=== PATIENT | female | born 1955 | race Caucasian/White ===

== ENCOUNTER → 2017-01-07 | Outpatient (CLI) | payer MEDICARE ==
--- NOTE | 2017-01-07 16:54 | XCELERA REPORT ---
[address] [address] Lower Extremity Arterial Evaluation Name: JACOB VILLEGAS Age: 61 yrs Gender: Female : 1955 Patient Status: Outpatient Patient Location: Study Date: 01/07/2017 12:55 PM Procedure: A color flow and duplex scan of the lower extremity arteries was performed bilaterally with velocity and waveform anaylsis. Reason For Study: L97.513 Ordering Physician: BIANKA CANTRELL Performed By: Alondra Guillen Measurements and Calculations Right Left WET WASHER MACHINE PSV 183.0 122.9 cm/sec Prox PFA PSV 122.2 -79.5 cm/sec Prox SFA PSV 159.2 117.5 cm/sec Mid SFA PSV -120.8 -115.2 cm/sec Dist SFA PSV -74.3 -63.9 cm/sec Prox Pop A PSV 111.0 99.2 cm/sec Dist ALEXIA PSV 116.3 120.8 cm/sec Dist SCIENCE INSTRUCTOR PSV 147.7 -98.7 cm/sec Juma Pedis PSV -51.9 110.8 cm/sec Right Side Arterial Evaluation Normal velocity and triphasic waveforms noted from the Common Femoral artery to the Popliteal artery. Biphasic in the infrageniculate vessels . 0-19% stenosis at the infrageniculate vessels. Ankle Brachial index is 1.22. Left Side Arterial Evaluation Normal velocity and triphasic waveforms noted from the Common Femoral artery to the infrageniculate vessels. 0 % stenosis at the Femoral artery. Ankle Brachial index is 1.33. Interpretation Summary Mild hemodynamically significant lesions in the right lower extremity only, on duplex imaging, at rest. No hemodynamically significant lesions in the left lower extremity only, on duplex imaging, at rest. : BIANKA CANTRELL > Low Herrera
== END ==
LOC: SP 12:54
PROVIDERS: ATTEND Preventive Medicine Undersea and Hyperbaric Medicine
DX: L97.513 Non-pressure chronic ulcer of other part of right foot with necrosis of muscle (principal)
CPT/HCPCS: 93925

== ENCOUNTER 2017-04-14 06:38 | Day surgery (SDC) | payer MEDICARE ==
[~2017-04-14 06:38] MED LIST: KETOROLAC TROMETHAMINE 0.45% 4 DROP/0.4 ML DROPERETTE OD PRN
[2017-04-14] MEDS: CYCLOPENTOLATE 0.2%/PHENYLEPHRINE 1% OPH SOLN 2 ML OD PRN ×3 (07:01→07:22)
[2017-04-14] MEDS: TETRACAINE HCL 0.5% OPH SOLN 0.6 ML DROPERETTE OD PRN ×3 (07:01→07:32)
[2017-04-14] MEDS: TROPICAMIDE 1% OPH SOLN 3 ML OD PRN ×3 (07:02→07:22)
[2017-04-14] MEDS ORDERED: MIDAZOLAM 2 MG/2 ML INJ ONE (07:02)
[2017-04-14] MEDS ORDERED: FENTANYL CITRATE INJ/PF 100 MCG/2 ML AMPUL ONE (07:03)
[2017-04-14] MEDS ORDERED: ONDANSETRON HCL INJ/PF 4 MG/2 ML SDV ONE (07:03)
[2017-04-14] MEDS: BESIFLOXACIN HCL 0.6% OPH SUSP 5 ML BOTTLE OD PRN ×3 (07:04→07:51)
[2017-04-14] MEDS ORDERED: EPINEPHRINE INJ/PF 1 MG/1 ML AMPULE ONE (07:10)
[2017-04-14] MEDS ORDERED: CHONDR SU A NA/HYALUR INTRAOC KIT (SURGICARE) ONE (07:10)
[2017-04-14] MEDS ORDERED: TOBRAMYCIN SULFATE/DEXAMETH OPH OINTMENT 3.5 GM ONE (07:10)
[2017-04-14] MEDS ORDERED: LIDOCAINE 1% INJ-PF (10 MG/ML) 30 ML SDV ONE (07:10)
== END 2017-04-14 08:32 | disposition home or self-care (01) ==
LOC: SC 06:38
PROVIDERS: ATTEND Ophthalmology
PROC: 08RJ3JZ Replacement of Right Lens with Synthetic Substitute, Percutaneous Approach (ICD-10-PCS; principal; 2017-04-14 07:30)
DX: H25.11 Age-related nuclear cataract, right eye (principal); I10 Essential (primary) hypertension; E11.9 Type 2 diabetes mellitus without complications; E03.9 Hypothyroidism, unspecified; E78.00 Pure hypercholesterolemia, unspecified; R01.1 Cardiac murmur, unspecified; I48.91 Unspecified atrial fibrillation; D64.9 Anemia, unspecified; Z88.5 Allergy status to narcotic agent; Z79.4 Long term (current) use of insulin; Z79.84 Long term (current) use of oral hypoglycemic drugs; Z85.42 Personal history of malignant neoplasm of other parts of uterus
CPT/HCPCS: 66984; 82962; V2630; J2250; J3490 ×3; A9270; J0171; J3010; J2405; 142

== ENCOUNTER 2017-04-28 07:00 | Day surgery (SDC) | payer MEDICARE ==
[~2017-04-28 07:00] MED LIST changes: -KETOROLAC TROMETHAMINE 0.45% 4 DROP/0.4 ML DROPERETTE OD PRN; +KETOROLAC TROMETHAMINE 0.45% 4 DROP/0.4 ML DROPERETTE OS PRN
[2017-04-28] MEDS ORDERED: MIDAZOLAM 2 MG/2 ML INJ ONE ×2 (07:02→07:25)
[2017-04-28] MEDS: CYCLOPENTOLATE 0.2%/PHENYLEPHRINE 1% OPH SOLN 2 ML OS PRN ×3 (07:11→07:30)
[2017-04-28] MEDS: TROPICAMIDE 1% OPH SOLN 3 ML OS PRN ×3 (07:11→07:30)
[2017-04-28] MEDS: TETRACAINE HCL 0.5% OPH SOLN 0.6 ML DROPERETTE OS PRN ×4 (07:12→07:34)
[2017-04-28] MEDS: BESIFLOXACIN HCL 0.6% OPH SUSP 5 ML BOTTLE OS PRN ×4 (07:12→07:53)
[2017-04-28] MEDS: LIDOCAINE 1% INJ-PF (10 MG/ML) 30 ML SDV ONE ×2 (07:43)
[2017-04-28] MEDS: CHONDR SU A NA/HYALUR INTRAOC KIT (SURGICARE) ONE ×2 (07:43)
[2017-04-28] MEDS: EPINEPHRINE INJ/PF 1 MG/1 ML AMPULE ONE ×2 (07:43)
[2017-04-28] MEDS: TOBRAMYCIN SULFATE/DEXAMETH OPH OINTMENT 3.5 GM ONE ×2 (07:53)
== END 2017-04-28 08:37 | disposition home or self-care (01) ==
LOC: SC 07:00
PROVIDERS: ATTEND Ophthalmology
PROC: 08RK3JZ Replacement of Left Lens with Synthetic Substitute, Percutaneous Approach (ICD-10-PCS; principal; 2017-04-28 07:30)
DX: H25.12 Age-related nuclear cataract, left eye (principal); Z98.41 Cataract extraction status, right eye; I10 Essential (primary) hypertension; E78.00 Pure hypercholesterolemia, unspecified; E03.9 Hypothyroidism, unspecified; K21.9 Gastro-esophageal reflux disease without esophagitis; E11.9 Type 2 diabetes mellitus without complications; Z79.899 Other long term (current) drug therapy; Z79.4 Long term (current) use of insulin; Z79.84 Long term (current) use of oral hypoglycemic drugs; Z88.5 Allergy status to narcotic agent; Z88.3 Allergy status to other anti-infective agents
CPT/HCPCS: 66984; 82962; V2630; J2250; J3490 ×3; A9270; J0171; 142

== ENCOUNTER → 2017-06-16 | Outpatient (CLI) | payer MEDICARE ==
--- NOTE | 2017-06-16 13:17 | WOMENS IMAGING REPORT ---
EXAM DESCRIPTION: 3D SCREENING MAMMO BILAT COMPLETED DATE/TIME: 06/16/2017 10:31 am REASON FOR STUDY: SCREENING MAMMO Z12.31 ENCNTR SCREEN MAMMOGRAM FOR MALIGNANT NEOPLASM OF LORI COMPARISON: None. TECHNIQUE: Standard craniocaudal and mediolateral oblique views of each breast recorded using digita l acquisition and breast tomosynthesis. LIMITATIONS: None. FINDINGS: No masses, calcifications or architectural distortion. No areas of suspicion. Read with the assistance of CAD. .[facility] - R2 Cenova Version 1.3 .[facility] Imaging - R2 Cenova Version 1.3 .[facility] Imaging - R2 Cenova Version 2.4 .[facility] [place]2 Cenova Version 2.4 .[facility] - R2 Fire Control Assistant Version 9.2 IMPRESSION: NORMAL MAMMOGRAM. BIRADS 1. BREAST DENSITY: b. There are scattered areas of fibroglandular density. BIRAD: 1 NEGATIVE RECOMMENDATION: ROUTINE SCREENING COMMENT: The patient has been notified of the results by letter per SA requirements. Additional no tification policies are in place for contacting patient with suspicious or incomplete findings. Quality ID #225: The [employer] recommends an annual screening mammogram for women aged 40 years or over. This facility utilizes a reminder system to ensure that all patients receive reminder letters, and/or direct phone calls for appointments. This includes reminders for routine scr eening mammograms, diagnostic mammograms, or other Breast Imaging Interventions when appropriate. Th is patient will be placed in the appropriate reminder system. The [employer] (ACR) has developed recommendations for screening MRI of the breast s in certain patient populations, to be used in conjunction with mammography. Breast MRI surveillanc e may be appropriate for women with more than 20% lifetime risk of developing breast cancer as deter mined by genetic testing, significant family history of the disease, or history of mantle radiation f or Hodgkins Disease. ACR Practice Guidelines 2008. DBT Technology DBT is a type of tomographic mammography. With conventional mammography, overlapping breast tissue ma y make lesions difficult to detect, even with good compression. DBT uses an x-ray tube that rotates a round the breast, taking images at different angles. These images are then combined to create thin sl ices of the breast that the radiologist can view as a 3D reconstruction. The [employer] unit can perform full-field digital mammograms (2D imaging); or DBT (3D imaging); or both, in a combination mode that quickly performs both the mammogram and the tomosynthesis scan while the breast is still compressed. PQRS 6045F: Fluoroscopic imaging is not utilized for breast tomosynthesis. TECHNICAL DOCUMENTATION: FINDING NUMBER: (1) ASSESSMENT: (1) JOB ID: [id number] [employer]- All Rights Reserved Reading location - IP/workstation name: [facility]
== END ==
LOC: WI 10:05
PROVIDERS: ATTEND Nurse Practitioner
DX: Z12.31 Encounter for screening mammogram for malignant neoplasm of breast (principal)
CPT/HCPCS: 77063; 77067

== ENCOUNTER → 2017-07-20 | Outpatient (CLI) | payer MEDICARE ==
--- NOTE | 2017-07-20 12:33 | RADIOLOGY REPORT (SQ) ---
EXAM DESCRIPTION: CHEST PA/LATERAL COMPLETED DATE/TIME: 07/20/2017 12:24 pm REASON FOR STUDY: PRE OP COMPARISON: None. EXAM PARAMETERS: NUMBER OF VIEWS: two views TECHNIQUE: Digital Frontal and Lateral radiographic views of the chest acquired. RADIATION DOSE: NA LIMITATIONS: none FINDINGS: LUNGS AND PLEURA: Minimal bandlike atelectasis or scarring in the lingula. Lungs are othe rwise well inflated and clear. No pleural effusion or pneumothorax. MEDIASTINUM AND HILAR STRUCTURES: No masses or contour abnormalities. HEART AND VASCULAR STRUCTURES: Heart normal size. No evidence for failure. BONES: Osteopenic. Less than 25% upper endplate compression at T12. This appears chronic HARDWARE: None in the chest. OTHER: No other significant finding. IMPRESSION: No acute findings. TECHNICAL DOCUMENTATION: JOB ID: [id number] [employer]- All Rights Reserved Reading location - IP/workstation name: [email or web address]
--- NOTE | 2017-07-20 12:54 | EKG REPORT ---
SEVERITY:- ABNORMAL ECG - SINUS RHYTHM LEFT VENTRICULAR HYPERTROPHY : Confirmed by: Matt Cartwright MD 20-Jul-2017 12:54:09
[2017-07-20 13:40] LABS: ABSOLUTE BASOPHILS # (AUTO) 0.1 10^3/uL (0.0-0.2); ABSOLUTE EOSINOPHILS # (AUTO) 0.2 10^3/uL (0.0-0.6); ABSOLUTE LYMPHOCYTES (AUTO) 1.6 10^3/uL (0.5-4.7); ABSOLUTE MONOCYTES (AUTO) 0.9 10^3/uL (0.1-1.4); ABSOLUTE NEUT (AUTO) 6.6 10^3/uL (1.7-8.2); EOSINOPHILS % (AUTO) 2.3 % (0-6); HEMATOCRIT 39.2 % (36.0-47.0); HEMOGLOBIN 13.2 g/dL (12.0-15.5); LYMPHOCYTES % (AUTO) 16.7 % (13-45); MEAN CORPUSCULAR HEMOGLOBIN 29.5 pg (27.0-33.4); MEAN CORPUSCULAR HGB CONC 33.7 g/dL (32.0-36.0); MEAN CORPUSCULAR VOLUME 88 fl (80-97); MONOCYTES % (AUTO) 9.2 % (3-13); PLATELET COUNT 334 10^3/uL (150-450); RED BLOOD COUNT 4.48 10^6/uL (3.72-5.28); SEGMENTED NEUTROPHILS % (AUTO) 70.8 % (42-78); TOTAL CELLS COUNTED % (AUTO) 100 %; WHITE BLOOD COUNT 9.4 10^3/uL (4.0-10.5)
[2017-07-20 13:40] LABS: APPEARANCE,URINE SLIGHTLY-CLOUDY; BILIRUBIN,URINE NEGATIVE (NEGATIVE); COLOR,URINE YELLOW; GLUCOSE, URINE NEGATIVE (NEGATIVE); KETONES,URINE NEGATIVE (NEGATIVE); LEUKOCYTE ESTERASE,URINE TRACE (NEGATIVE); NITRITE,URINE NEGATIVE (NEGATIVE); PROTEIN,URINE NEGATIVE (NEGATIVE); URINE SPECIFIC GRAVITY 1.015
[2017-07-20 14:00] LABS: ANION GAP 10 (5-19); BLOOD UREA NITROGEN 25 mg/dL (7-20); CALCIUM 9.9 mg/dL (8.4-10.2); CARBON DIOXIDE 31 mmol/L (22-30); CHLORIDE 100 mmol/L (98-107); GLUCOSE 117 mg/dL (75-110); POTASSIUM 4.8 mmol/L (3.6-5.0)
== END ==
LOC: OD 11:30
PROVIDERS: ATTEND Orthopaedic Surgery
DX: Z01.810 Encounter for preprocedural cardiovascular examination (principal); Z01.812 Encounter for preprocedural laboratory examination; Z01.818 Encounter for other preprocedural examination; E11.9 Type 2 diabetes mellitus without complications
CPT/HCPCS: 36415; 71046; 80048; 81001; 83036; 85025; 93005; 93010

== ENCOUNTER 2017-08-16 10:24 | Inpatient (IN) | payer MEDICARE ==
[~2017-08-16 10:24] MED LIST changes: +BUPIVACAINE INJ/PF LIPOSOME/PF 266 MG/20 ML SDV INJ PRN; +CEFAZOLIN INJ 1 GM VIAL IV PRN; +IBUPROFEN 800 MG in NORMAL SALINE 250 ML IV PRN; -KETOROLAC TROMETHAMINE 0.45% 4 DROP/0.4 ML DROPERETTE OS PRN; +LACTATED RINGERS 1000 ML IV PRN; +LANSOPRAZOLE 15 MG TAB.RAP.DR PO PRN; +LIDOCAINE 0.5% INJ-PF (5 MG/ML) 50 ML SDV SUBCUT PRN; +OXYCODONE HCL SR 10 MG TABLET PO PRN; +VANCOMYCIN HCL 1,000 MG in DEXTROSE 5%-WATER 250 ML IV PRN
[2017-08-16 11:27] LABS: POTASSIUM 4.1 mmol/L (3.6-5.0)
[2017-08-16] MEDS ORDERED: MIDAZOLAM 2 MG/2 ML INJ ONE (11:45)
[2017-08-16] MEDS ORDERED: PROPOFOL INJ 200 MG/20 ML VIAL IV ONE ×3 (11:45→14:15)
[2017-08-16] MEDS ORDERED: ACETAMINOPHEN 100 ML IV ONE (11:45)
[2017-08-16] MEDS ORDERED: TRANEXAMIC ACID INJ/PF 1,000 MG/10 ML SDV IV ONE (11:45)
[2017-08-16] MEDS ORDERED: TETRACAINE HCL/PF 20MG/2ML AMPULE (SPINAL) ONE (11:46)
[2017-08-16] MEDS ORDERED: THROMBIN (BOVINE) 5000 UNIT EPITAXIS KIT ONE (12:18)
[2017-08-16] MEDS ORDERED: THROMBIN (BOVINE) TOPICAL 20000 UNIT VIAL ONE (12:18)
[2017-08-16] MEDS ORDERED: BUPIVACAINE INJ/PF LIPOSOME/PF 266 MG/20 ML SDV ONE (12:19)
[2017-08-16] MEDS ORDERED: FENTANYL CITRATE INJ/PF 100 MCG/2 ML AMPUL IV PRN ×3 (12:43)
[2017-08-16] MEDS ORDERED: MEPERIDINE HCL/PF INJ 25 MG/1 ML DISP.SYRIN IV PRN (12:43)
[2017-08-16] MEDS ORDERED: DIPHENHYDRAMINE HCL 50 MG/ML VIAL IV PRN ×2 (12:43→13:54)
[2017-08-16] MEDS ORDERED: OXYCODONE-ACETAMINOPHEN 5-325 MG TABLET PO PRN ×2 (12:43)
[2017-08-16] MEDS ORDERED: PROMETHAZINE HCL INJ 25 MG/1 ML VIAL IV PRN ×2 (12:43)
--- NOTE | 2017-08-16 13:52 | Operative Report ---
Operative Report DATE OF SURGERY: 08/16/17 PREOPERATIVE DIAGNOSIS: Left hip arthritis OPERATION: Left hip arthroplasty SURGEON: SIXTO HUGHES ANESTHESIA: Spinal TISSUE REMOVED OR ALTERED: Femoral head to pathology ESTIMATED BLOOD LOSS: 100 PROCEDURE: Implants used: Femur: [place] Accolade 2 stem size 6 Acetabular shell: Trident cluster hole cup size 56 Liner: 36 mm flat cross-link Poliquin liner Head: 36 mm chrome cobalt head -5 neck The patient is placed in a right lateral decubitus position on the operating table. The left lower extremity and hindquarter is prepped and draped in a sterile fashion. A curvilinear incision was made over the greater trochanter a posterior approach the hip was taken. The femoral head is dislocated and the femoral neck transected using an oscillating saw. Attention was next turned to the acetabulum. Soft tissues cleared off the acetabulum using electrocautery. The acetabulum was then prepared using a series of hemispherical reamers until a 55 millimeters reamer is seated. Subsequently a 56 millimeters Nevin titanium hemispherical shell is impacted into position and secured with one screw. A standard flat 36 millimeters cross- link liner is impacted into the shell. Attention was next turned to the femur. Access is gained to the femoral canal using a box osteotome to the piriformis fossa. The femur is then prepared using a series of broaches until a number 6 broach is seated. A trial reduction was now performed using a 36 millimeters head with minus 5 neck. Preoperative leg length was recreated and is excellent anterior posterior stability. A decision was made to proceed with the above construct. All trial implants were removed. The wound is irrigated with pulsed lavage. A number 6 stem is impacted into the femoral canal. A trial reduction was again performed with a 36 mm head and a -5 neck. Findings as previously. The hip was dislocated one last time and the final chrome-cobalt head is impacted onto the trunnion. The hip was reduced. Wound is copiously irrigated with pulsed lavage. Sent closed in layers using interrupted Vicryl followed by marcio. A sterile dressing is applied and the patient's returned to recovery room in satisfactory patient.
[2017-08-16] MEDS ORDERED: ONDANSETRON 4 MG TAB.RAPDIS PO PRN (13:54)
[2017-08-16] MEDS ORDERED: MAG HYDROX/AL HYDROX/SIMETH SUSP 30 ML UDCUP PO PRN (13:54)
[2017-08-16] MEDS ORDERED: OXYCODONE HCL IR 5 MG TABLET PO PRN (13:54)
[2017-08-16] MEDS ORDERED: ONDANSETRON HCL INJ/PF 4 MG/2 ML SDV IV PRN (13:54)
[2017-08-16] MEDS ORDERED: RINGERS SOLUTION,LACTATED 1,000 ML IV PRN (13:54)
[2017-08-16] MEDS ORDERED: ZOLPIDEM TARTRATE 5 MG TABLET PO PRN (13:54)
[2017-08-16] MEDS ORDERED: MORPHINE SULFATE 10 MG/ML INJ IV PRN ×3 (13:54)
[2017-08-16] MEDS ORDERED: ACETAMINOPHEN 325 MG TABLET PO PRN (13:54)
[2017-08-16] MEDS ORDERED: MORPHINE SULFATE 10 MG/ML INJ IM PRN (13:54)
[2017-08-16] MEDS ORDERED: EPHEDRINE SULFATE INJ 50 MG/1 ML AMPULE ONE (14:15)
--- NOTE | 2017-08-16 15:08 | RADIOLOGY REPORT (SQ) ---
EXAM DESCRIPTION: PELVIS AP COMPLETED DATE/TIME: 08/16/2017 2:33 pm REASON FOR STUDY: Post Op Long Cassette in PACU M16.12 UNILATERAL PRIMARY OSTEOARTHRITIS, LEFT HIP COMPARISON: None. NUMBER OF VIEWS: One view TECHNIQUE: Digital radiographic images of the pelvis post-procedure LIMITATIONS: None. FINDINGS: BONES: No worrisome or unexpected findings post-procedure. DEVICE: Left total hip arthroplasty. SOFT TISSUES: No worrisome findings. Expected postoperative soft tissue changes. IMPRESSION: SATISFACTORY POSTOPERATIVE PELVIS. TECHNICAL DOCUMENTATION: JOB ID: [id number] [employer]- All Rights Reserved Reading location - IP/workstation name: [email or web address]
[2017-08-16] MEDS ORDERED: DEXTROSE 50%-WATER SYRINGE 25 GM/50 ML DOSE IV PRN (15:12)
[2017-08-16] MEDS ORDERED: DEXTROSE 50%-WATER SYRINGE 12.5 GM/25 ML DOSE IV PRN (15:12)
[2017-08-16] MEDS ORDERED: GLUCAGON,HUMAN RECOMB 1 MG INJ IM PRN (15:12)
[2017-08-16] MEDS ORDERED: DEXTROSE 40% GEL 15 GM TUBE X 2 PO PRN (15:12)
[2017-08-16] MEDS ORDERED: INSULIN LISPRO 100 UNIT/ML 3 ML VIAL SUBCUT PRN (15:12)
[2017-08-16] MEDS ORDERED: DEXTROSE 40% GEL 15 GM TUBE PO PRN (15:12)
[2017-08-16] MEDS ORDERED: TRANEXAMIC ACID INJ/PF 1,000 MG/10 ML SDV IV SCH (16:00)
[2017-08-16] MEDS: PREGABALIN 75 MG CAPSULE PO SCH (18:58)
[2017-08-16] MEDS: SENNOSIDES/DOCUSATE 8.6-50 MG 1 EACH TABLET PO SCH (19:32)
[2017-08-16] MEDS: ATORVASTATIN CALCIUM 80 MG TABLET PO SCH (21:08)
[2017-08-16] MEDS: OXYCODONE HCL SR 10 MG TABLET PO SCH (21:08)
[2017-08-16] MEDS: IBUPROFEN 800 MG in NORMAL SALINE 250 ML IV SCH (21:08)
[2017-08-16] MEDS: INSULIN GLARGINE,HUM.REC.ANLOG 300 UNIT/3 ML INSULN.PEN SUBCUT SCH (21:11)
[2017-08-17] MEDS ORDERED: VANCOMYCIN HCL 1,000 MG in DEXTROSE 5%-WATER 250 ML IV ONE (02:00)
[2017-08-17] MEDS: LEVOTHYROXINE SODIUM 0.1 MG TABLET PO SCH (05:31)
[2017-08-17] MEDS: IBUPROFEN 800 MG in NORMAL SALINE 250 ML IV SCH ×3 (05:32→21:09)
[2017-08-17] MEDS: LANSOPRAZOLE 30 MG TAB.RAP.DR PO SCH (05:34)
[2017-08-17 06:20] LABS: HEMATOCRIT 33.7 % (36.0-47.0); HEMOGLOBIN 11.2 g/dL (12.0-15.5); MEAN CORPUSCULAR HEMOGLOBIN 29.7 pg (27.0-33.4); MEAN CORPUSCULAR HGB CONC 33.4 g/dL (32.0-36.0); MEAN CORPUSCULAR VOLUME 89 fl (80-97); PLATELET COUNT 255 10^3/uL (150-450); RED BLOOD COUNT 3.78 10^6/uL (3.72-5.28); RED CELL DISTRIBUTION WIDTH 14.5 % (11.5-14.0); WHITE BLOOD COUNT 9.8 10^3/uL (4.0-10.5)
[2017-08-17 06:42] LABS: ANION GAP 11 (5-19); BLOOD UREA NITROGEN 26 mg/dL (7-20); CARBON DIOXIDE 29 mmol/L (22-30); CHLORIDE 99 mmol/L (98-107); GLUCOSE 173 mg/dL (75-110); POTASSIUM 3.9 mmol/L (3.6-5.0); SODIUM 138.8 mmol/L (137-145)
--- NOTE | 2017-08-17 06:48 | PDOC PROGRESS REPORT ---
Subjective Progress Note for:: 08/17/17 Reason For Visit: LEFT HIP ARTHRITIS 62-year-old white female postop day 1 left hip arthroplasty. Patient with minor complaints of pain. No physical therapy yesterday because of prolonged spinal anesthetic. Physical Exam Vital Signs: Temp Pulse Resp BP Pulse Ox 36.7 C 66 18 128/60 H 95 08/17/17 04:00 08/17/17 04:00 08/17/17 04:00 08/17/17 04:00 08/17/17 04:00 Intake & Output 08/15/17 08/16/17 08/17/17 06:59 06:59 06:59 Intake Total 4631 Output Total 3450 Balance 1181 Weight 126.9 kg General appearance: PRESENT: no acute distress, obese Respiratory exam: PRESENT: unlabored Pulses: PRESENT: +1 pedal pulses bilateral Vascular exam: PRESENT: normal capillary refill GI/Abdominal exam: PRESENT: soft Rectal exam: PRESENT: deferred Extremities exam: PRESENT: other - Patient lying comfortably in bed. Distal neurovascular examination is intact. Leg lengths are equal. Left hip dressing clean dry and intact. Neurological exam: PRESENT: alert, awake, oriented to person, oriented to place , oriented to time, oriented to situation. ABSENT: motor sensory deficit Psychiatric exam: PRESENT: appropriate affect, normal mood. ABSENT: homicidal ideation, suicidal ideation Skin exam: PRESENT: dry, intact, warm. ABSENT: cyanosis, rash Results Laboratory Results: 08/17/17 05:29 08/16/17 08/16/17 08/17/17 11:01 11:01 05:29 WBC 9.8 RBC 3.78 Hgb 11.2 L Hct 33.7 L MCV 89 MCH 29.7 MCHC 33.4 RDW 14.5 H Plt Count 255 Potassium 4.1 Glucose 148 H Blood Type A POSITIVE Antibody Screen POSITIVE Impressions: Pelvis X-Ray 08/16/17 13:55 IMPRESSION: SATISFACTORY POSTOPERATIVE PELVIS. Status: Imported from PACS Assessment & Plan - Diagnosis (1) Arthritis of left hip Is this a current diagnosis for this admission?: Yes Plan: Anticipate patient making progress with physical therapy today. - Time Time Spent with patient: 15-24 minutes Anticipated discharge: Home with Homehealth Within: within 24 hours
[2017-08-17] MEDS ORDERED: ONDANSETRON HCL INJ/PF 4 MG/2 ML SDV ONE (08:16)
[2017-08-17] MEDS ORDERED: CHLORTHALIDONE PO SCH (10:00)
[2017-08-17] MEDS ORDERED: B2 PO SCH (10:00)
[2017-08-17] MEDS ORDERED: VIT D3 PO SCH (10:00)
[2017-08-17] MEDS ORDERED: B12 PO SCH (10:00)
[2017-08-17] MEDS ORDERED: B6 PO SCH (10:00)
[2017-08-17] MEDS ORDERED: (PENDING PHARMACY ID) (Clonazepam [Klonopin 0.5 Mg Tablet Rapid Dissolve] 0.5 MG) PO SCH (10:00)
[2017-08-17] MEDS ORDERED: FOLIC ACID PO SCH (10:00)
[2017-08-17] MEDS ORDERED: ATENOLOL PO SCH (10:00)
[2017-08-17] MEDS: METFORMIN HCL 500 MG TABLET PO SCH (10:19)
[2017-08-17] MEDS: CYANOCOBALAMIN/FA/PYRIDOXINE TABLET PO SCH (12:16)
[2017-08-17] MEDS: PRENATAL VITAMIN W DHA CAPSULE PO SCH (12:17)
[2017-08-17] MEDS: DULOXETINE HCL 30 MG CAPSULE.DR PO SCH (12:18)
[2017-08-17] MEDS: PREGABALIN 75 MG CAPSULE PO SCH ×2 (12:18→17:25)
[2017-08-17] MEDS: CLONAZEPAM 1 MG TABLET PO SCH (12:18)
[2017-08-17] MEDS: CHOLECALCIFEROL (D3) 1,000 UNIT TABLET PO SCH (12:18)
[2017-08-17] MEDS: SENNOSIDES/DOCUSATE 8.6-50 MG 1 EACH TABLET PO SCH ×2 (12:18→17:25)
[2017-08-17] MEDS: ASPIRIN 81 MG TABLET, ENT COATED PO SCH (12:19)
[2017-08-17] MEDS: CHLORTHALIDONE 25 MG TABLET PO SCH (12:19)
[2017-08-17] MEDS: OXYCODONE HCL SR 10 MG TABLET PO SCH ×2 (12:19→21:14)
[2017-08-17] MEDS: ATENOLOL 50 MG TABLET PO SCH (12:19)
[2017-08-17] MEDS: LISINOPRIL 10 MG TABLET PO SCH (12:35)
[2017-08-17] MEDS: INSULIN GLARGINE,HUM.REC.ANLOG 300 UNIT/3 ML INSULN.PEN SUBCUT SCH (21:13)
[2017-08-17] MEDS: ATORVASTATIN CALCIUM 80 MG TABLET PO SCH (21:14)
[2017-08-18] MEDS: LANSOPRAZOLE 30 MG TAB.RAP.DR PO SCH (05:36)
[2017-08-18] MEDS: LEVOTHYROXINE SODIUM 0.1 MG TABLET PO SCH (05:36)
[2017-08-18] MEDS: IBUPROFEN 800 MG in NORMAL SALINE 250 ML IV SCH (05:38)
[2017-08-18 07:06] LABS: HEMATOCRIT 33.9 % (36.0-47.0); HEMOGLOBIN 11.4 g/dL (12.0-15.5); MEAN CORPUSCULAR HGB CONC 33.6 g/dL (32.0-36.0); MEAN CORPUSCULAR VOLUME 89 fl (80-97); PLATELET COUNT 269 10^3/uL (150-450); RED CELL DISTRIBUTION WIDTH 14.3 % (11.5-14.0); WHITE BLOOD COUNT 14.4 10^3/uL (4.0-10.5)
--- NOTE | 2017-08-18 07:20 | PDOC DISCHARGE SUMMARY ---
General - Admit/Disc Date/PCP Admission Date/Primary Care Provider: 08/16/17 10:24 YON ABREU Discharge Date: 08/18/17 - Discharge Diagnosis (1) Arthritis of left hip Is this a current diagnosis for this admission?: Yes - Additional Information Resuscitation Status: Full Code Discharge Diet: As Tolerated, Regular Discharge Activity: Balance Activity w/Rest, Bedrest, No tub bath Home Medications: Atenolol/Chlorthalidone [Atenolol-Chlorthalidone 50-25] 1 tab PO DAILY 04/08/17 Atorvastatin Calcium [Lipitor 80 mg Tablet] 80 mg PO QHS 04/08/17 Clonazepam [Klonopin 0.5 mg Tablet Rapid Dissolve] 0.5 mg PO DAILY 04/08/17 Duloxetine HCl [Cymbalta] 60 mg PO DAILY 04/08/17 Insulin Glargine,Hum.rec.anlog [Lantus Insulin 100 Unit/mL] 49 units SQ QHS Levothyroxine Sodium [Synthroid] 200 mcg PO DAILY 04/08/17 Lisinopril [Prinivil 40 mg Tablet] 40 mg PO DAILY 04/08/17 Metformin HCl 500 mg PO DAILY 04/08/17 Multivitamin [Multivitamins] 1 each PO DAILY 04/08/17 Insulin Aspart [Novolog Insulin (Aspart) 100 unit/mL] 40 units SQ ASDIR PRN 12/28 Vit D3/Folic Acid/B2/B6/B12 [Folgard Tablet] 2,000 units PO DAILY 07/19/17 Aspirin [Ecotrin 81 mg EC Tablet] 81 mg PO DAILY tabec 08/18/17 Oxycodone HCl [Oxy-Ir 5 mg Tablet] 5 mg PO Q6HP PRN tablet 08/18/17 Pregabalin [Lyrica 75 mg Capsule] 75 mg PO BID capsule 08/18/17 History of Present Illness History of Present Illness: JACOB VILLEGAS is a 62 year old female with progressive left hip pain and functional disability secondary osteoarthritis. Patient is admitted for elective left hip arthroplasty. Hospital Course Hospital Course: Patient is admitted through the operating where she undergoes uncomplicated left hip arthroplasty. She is returned to floor in satisfactory condition. On the day of surgery her prolonged spinal anesthetic precludes physical therapy. On postop day 1 patient makes excellent progress with physical therapy is reasonable pain control. She substrate for discharge home on postop day 2 with home health services. Physical Exam Vital Signs: Temp Pulse Resp BP Pulse Ox 37.4 C 70 20 110/58 L 91 L 08/18/17 03:04 08/18/17 03:04 08/18/17 03:04 08/18/17 03:04 08/18/17 03:04 Intake & Output 08/17/17 08/18/17 08/19/17 06:59 06:59 06:59 Intake Total 4631 1160 Output Total 3450 400 Balance 1181 760 Weight 126.9 kg 125.1 kg General appearance: PRESENT: no acute distress, obese Head exam: PRESENT: normocephalic Respiratory exam: PRESENT: unlabored Cardiovascular exam: PRESENT: RRR Pulses: PRESENT: +1 pedal pulses bilateral Vascular exam: PRESENT: normal capillary refill GI/Abdominal exam: PRESENT: soft Rectal exam: PRESENT: deferred Extremities exam: PRESENT: other - Left hip postoperative surgical dressing remains clean dry and intact. Leg lengths are equal. Distal neurovascular examination is intact. Neurological exam: PRESENT: alert, awake, oriented to person, oriented to place , oriented to time, oriented to situation. ABSENT: motor sensory deficit Psychiatric exam: PRESENT: appropriate affect, normal mood. ABSENT: homicidal ideation, suicidal ideation Skin exam: PRESENT: dry, intact, warm. ABSENT: cyanosis, rash Results Laboratory Results: 08/18/17 06:34 08/17/17 05:29 08/18/17 06:34 WBC 14.4 H RBC 3.80 Hgb 11.4 L Hct 33.9 L MCV 89 MCH 30.0 MCHC 33.6 RDW 14.3 H Plt Count 269 Impressions: Pelvis X-Ray 08/16/17 13:55 IMPRESSION: SATISFACTORY POSTOPERATIVE PELVIS. Status: Imported from PACS Qualifiers - * PATIENT BEING DISCHARGED WITH ANY OF THE FOLLOWING DIAGNOSIS: No VTE patient discharged on overlapping Therapy?: Yes Plan Discharge Plan: Patient discharged home with home health nursing, home health physical therapy, wheeled walker, bedside commode. Follow-up with Dr. Dara Vora [place] for surgery in 2 weeks for staple removal. Time Spent: Less than 30 Minutes
[2017-08-18 08:12] VITALS: BP 128/60
[2017-08-18] MEDS: LISINOPRIL 10 MG TABLET PO SCH (09:45)
[2017-08-18] MEDS: CHOLECALCIFEROL (D3) 1,000 UNIT TABLET PO SCH (09:55)
[2017-08-18] MEDS: METFORMIN HCL 500 MG TABLET PO SCH (09:56)
[2017-08-18] MEDS: PRENATAL VITAMIN W DHA CAPSULE PO SCH (09:56)
[2017-08-18] MEDS: ASPIRIN 81 MG TABLET, ENT COATED PO SCH (09:56)
[2017-08-18] MEDS: PREGABALIN 75 MG CAPSULE PO SCH (09:56)
[2017-08-18] MEDS: SENNOSIDES/DOCUSATE 8.6-50 MG 1 EACH TABLET PO SCH (09:56)
[2017-08-18] MEDS: CYANOCOBALAMIN/FA/PYRIDOXINE TABLET PO SCH (09:57)
[2017-08-18] MEDS: CLONAZEPAM 1 MG TABLET PO SCH (09:57)
[2017-08-18] MEDS: DULOXETINE HCL 30 MG CAPSULE.DR PO SCH (09:57)
[2017-08-18] MEDS: OXYCODONE HCL SR 10 MG TABLET PO SCH (09:57)
[2017-08-18] MEDS: ATENOLOL 50 MG TABLET PO SCH (09:57)
[2017-08-18] MEDS: CHLORTHALIDONE 25 MG TABLET PO SCH (10:02)
== END 2017-08-18 10:09 | disposition home health service (06) | DRG 470 ==
LOC: INOR 10:24 → 4S 14:58
PROVIDERS: ADMIT Orthopaedic Surgery; ATTEND Orthopaedic Surgery
PROC: 0SRB02Z Replacement of Left Hip Joint with Metal on Polyethylene Synthetic Substitute, Open Approach (ICD-10-PCS; principal; 2017-08-16 12:30)
DX: M16.12 Unilateral primary osteoarthritis, left hip (principal); E11.40 Type 2 diabetes mellitus with diabetic neuropathy, unspecified; E03.9 Hypothyroidism, unspecified; I11.0 Hypertensive heart disease with heart failure; I50.9 Heart failure, unspecified; I48.0 Paroxysmal atrial fibrillation; Z79.4 Long term (current) use of insulin; Z79.82 Long term (current) use of aspirin; Z79.899 Other long term (current) drug therapy; Z85.42 Personal history of malignant neoplasm of other parts of uterus; Z82.49 Family history of ischemic heart disease and other diseases of the circulatory system; Z88.1 Allergy status to other antibiotic agents
CPT/HCPCS: 01214; 36415; 72170; 80048; 82947; 82962; 84132; 85027; 86850; 86870; 86900; 86901; 86902; 88305; 88311; 94799; C9290; G8978-GP; G8979-GP; J0131; J0690; J1741; J1815; J2250; J2405; J2704; J3370; J3490; J7050; J7060

== ENCOUNTER → 2018-02-21 | Outpatient (CLI) | payer MEDICARE ==
[2018-02-21 15:03] LABS: ABSOLUTE EOSINOPHILS # (AUTO) 0.2 10^3/uL (0.0-0.6); ABSOLUTE LYMPHOCYTES (AUTO) 1.7 10^3/uL (0.5-4.7); ABSOLUTE MONOCYTES (AUTO) 0.7 10^3/uL (0.1-1.4); ABSOLUTE NEUT (AUTO) 5.7 10^3/uL (1.7-8.2); BASOPHILS % (AUTO) 0.6 % (0-2); HEMATOCRIT 37.5 % (36.0-47.0); HEMOGLOBIN 12.5 g/dL (12.0-15.5); LYMPHOCYTES % (AUTO) 19.9 % (13-45); MEAN CORPUSCULAR HEMOGLOBIN 29.2 pg (27.0-33.4); MEAN CORPUSCULAR HGB CONC 33.5 g/dL (32.0-36.0); MEAN CORPUSCULAR VOLUME 87 fl (80-97); MONOCYTES % (AUTO) 8.5 % (3-13); PLATELET COUNT 377 10^3/uL (150-450); RED BLOOD COUNT 4.29 10^6/uL (3.72-5.28); RED CELL DISTRIBUTION WIDTH 14.4 % (11.5-14.0); TOTAL CELLS COUNTED % (AUTO) 100 %; WHITE BLOOD COUNT 8.4 10^3/uL (4.0-10.5)
--- NOTE | 2018-02-21 15:24 | RADIOLOGY REPORT (SQ) ---
EXAM DESCRIPTION: FOOT RIGHT COMPLETE COMPLETED DATE/TIME: 02/21/2018 2:53 pm REASON FOR STUDY: L97.412 TYPE 2 DIABETES MELLITUS WITH FOOT ULCER, MIDFOOT E11.621 TYPE 2 DIABETES MELLITUS WITH FOOT ULCER COMPARISON: Right foot films 02/15/2017 NUMBER OF VIEWS: Three views. TECHNIQUE: AP, lateral and oblique radiographic images acquired of the right foot. LIMITATIONS: None. FINDINGS: Patient has a Charcot foot, with sclerosis, fragmentation, and disorganization of the tars al bones and proximal metatarsals. There is collapse of the plantar arch. The walled fusion screw is present from the 1st metatarsal head through the talus. Screw is fracture d at the talonavicular joint, with erosion of the screw into the base of the great toe proximal phala nx plantar aspect. Patient is also post fusion at the 4th metatarsal, with a lag screw from the 4th metatarsal head into the calcaneus adjacent to the calcaneal cuboid joint. There is no screw fracture. However there is lucency around the screw at the 4th metatarsal head indicating loosening Patient has a plantar ulcer at about the level of the tarsometatarsal joints, with radiopaque ointmen t and overlying dressing. Intact screws at old healed right medial and lateral malleolus fractures IMPRESSION: No acute fracture. Hardware failure 1st metatarsal as above. Findings of Charcot foot with collapse of the plantar arch and a plantar ulcer TECHNICAL DOCUMENTATION: JOB ID: [id number] [employer]- All Rights Reserved Reading location - IP/workstation name: [email or web address]
[2018-02-21 15:35] LABS: ALANINE AMINOTRANSFERASE 16 U/L (9-52); ALBUMIN 3.9 g/dL (3.5-5.0); ALKALINE PHOSPHATASE 93 U/L (38-126); ANION GAP 11 (5-19); ASPARTATE AMINO TRANSFERASE 21 U/L (14-36); BILIRUBIN,DIRECT 0.4 mg/dL (0.0-0.4); BILIRUBIN,TOTAL 0.9 mg/dL (0.2-1.3); BLOOD UREA NITROGEN 19 mg/dL (7-20); C-REACTIVE PROTEIN 13.3 mg/L (<10.0); CALCIUM 9.3 mg/dL (8.4-10.2); CARBON DIOXIDE 31 mmol/L (22-30); CHLORIDE 100 mmol/L (98-107); GLUCOSE 169 mg/dL (75-110); POTASSIUM 4.7 mmol/L (3.6-5.0); SODIUM 142.3 mmol/L (137-145); TOTAL PROTEIN 7.1 g/dL (6.3-8.2)
[2018-02-21 15:44] LABS: ERYTHROCYTE SEDIMENTATION RATE 35 mm/hr (0-30)
== END ==
LOC: WC 14:27
PROVIDERS: ATTEND Preventive Medicine Undersea and Hyperbaric Medicine
DX: E11.621 Type 2 diabetes mellitus with foot ulcer (principal); L97.412 Non-pressure chronic ulcer of right heel and midfoot with fat layer exposed; T84.223D Displacement of internal fixation device of bones of foot and toes, subsequent encounter
CPT/HCPCS: 36415; 80053; 83036; 85025; 85652; 86140

== ENCOUNTER → 2018-04-25 | Outpatient (CLI) | payer MEDICARE ==
[2018-04-25 15:37] LABS: ABSOLUTE BASOPHILS # (AUTO) 0.1 10^3/uL (0.0-0.2); ABSOLUTE EOSINOPHILS # (AUTO) 0.3 10^3/uL (0.0-0.6); ABSOLUTE LYMPHOCYTES (AUTO) 1.8 10^3/uL (0.5-4.7); ABSOLUTE MONOCYTES (AUTO) 0.7 10^3/uL (0.1-1.4); ABSOLUTE NEUT (AUTO) 5.3 10^3/uL (1.7-8.2); BASOPHILS % (AUTO) 1.2 % (0-2); HEMATOCRIT 40.3 % (36.0-47.0); HEMOGLOBIN 13.6 g/dL (12.0-15.5); MEAN CORPUSCULAR HEMOGLOBIN 29.3 pg (27.0-33.4); MEAN CORPUSCULAR HGB CONC 33.6 g/dL (32.0-36.0); MEAN CORPUSCULAR VOLUME 87 fl (80-97); MONOCYTES % (AUTO) 8.6 % (3-13); PLATELET COUNT 286 10^3/uL (150-450); RED BLOOD COUNT 4.64 10^6/uL (3.72-5.28); SEGMENTED NEUTROPHILS % (AUTO) 64.2 % (42-78); TOTAL CELLS COUNTED % (AUTO) 100 %; WHITE BLOOD COUNT 8.2 10^3/uL (4.0-10.5)
--- NOTE | 2018-04-25 15:55 | RADIOLOGY REPORT (SQ) ---
EXAM DESCRIPTION: FOOT RIGHT COMPLETE COMPLETED DATE/TIME: 04/25/2018 3:35 pm REASON FOR STUDY: NON-PRS CHRONIC ULCER OTH PRT RIGHT FOOT W FAT LAYER EXPOSED E11.621 TYPE 2 DIABE SAE MELLITUS WITH FOOT ULCER L97.512 NON-PRS CHRONIC ULCER OTH PRT RIGHT FOOT W FAT LAYER COMPARISON: 02/21/2018 NUMBER OF VIEWS: Three views. TECHNIQUE: AP, lateral and oblique radiographic images acquired of the right foot. LIMITATIONS: None. FINDINGS: MINERALIZATION: Normal. BONES: No acute fracture or dislocation. No worrisome bone lesions. JOINTS: No effusions. SOFT TISSUES: No soft tissue swelling. No foreign body. OTHER: Long cannulated screws are present in the foot. There is 1 through the 1st metatarsal into th e talus that is broken. The others through the 4th metatarsal IMPRESSION: Surgical changes. No acute bone destruction is appreciated. TECHNICAL DOCUMENTATION: JOB ID: [id number] [employer]- All Rights Reserved Reading location - IP/workstation name: [email or web address]
[2018-04-25 16:01] LABS: ALANINE AMINOTRANSFERASE 22 U/L (9-52); ALBUMIN 4.4 g/dL (3.5-5.0); ALKALINE PHOSPHATASE 115 U/L (38-126); ANION GAP 10 (5-19); ASPARTATE AMINO TRANSFERASE 23 U/L (14-36); BILIRUBIN,DIRECT 0.2 mg/dL (0.0-0.4); BILIRUBIN,TOTAL 1.5 mg/dL (0.2-1.3); BLOOD UREA NITROGEN 28 mg/dL (7-20); C-REACTIVE PROTEIN 23.5 mg/L (<10.0); CALCIUM 9.6 mg/dL (8.4-10.2); CARBON DIOXIDE 30 mmol/L (22-30); CHLORIDE 98 mmol/L (98-107); GLUCOSE 128 mg/dL (75-110); POTASSIUM 4.5 mmol/L (3.6-5.0); SODIUM 137.7 mmol/L (137-145); TOTAL PROTEIN 7.4 g/dL (6.3-8.2)
[2018-04-25 16:21] LABS: ERYTHROCYTE SEDIMENTATION RATE 35 mm/hr (0-30)
== END ==
LOC: WC 15:06
PROVIDERS: ATTEND Preventive Medicine Undersea and Hyperbaric Medicine
DX: E11.621 Type 2 diabetes mellitus with foot ulcer (principal); L97.512 Non-pressure chronic ulcer of other part of right foot with fat layer exposed
CPT/HCPCS: 36415; 80053; 83036; 85025; 85652; 86140

== ENCOUNTER → 2018-05-23 | Outpatient (CLI) | payer MEDICARE ==
--- NOTE | 2018-05-23 10:35 | RADIOLOGY REPORT (SQ) ---
EXAM DESCRIPTION: FOOT RIGHT COMPLETE COMPLETED DATE/TIME: 05/23/2018 10:05 am REASON FOR STUDY: NON-PRS CHRONIC ULCER OTH PRT RIGHT FOOT W FAT LAYER EXPOSED E11.621 TYPE 2 DIABE SAE MELLITUS WITH FOOT ULCER L97.512 NON-PRS CHRONIC ULCER OTH PRT RIGHT FOOT W FAT LAYER COMPARISON: Right foot films 04/25/2018, 04/23/2017, 02/15/2017 NUMBER OF VIEWS: Three views. TECHNIQUE: AP, lateral and oblique radiographic images acquired of the right foot. LIMITATIONS: None. FINDINGS: Overall bone density is grossly normal. Patient has a Charcot foot, with increased density of the tarsal bones, articular surface sclerosis a nd irregularity, bony fragmentation along the hind and midfoot. Patient is post prior fusion, fractured hardware along the talus/navicular/1st metatarsal. There is telescoping of the screw head into the base of the 1st toe proximal phalanx no surrounding lucency ar ound the screw from loosening. Fracture of the screw at the talonavicular joint. Patient is also post fusion along the 4th metatarsal with a long screw from the 4th metatarsal throug h the cuboid and into the calcaneus. There is lucency around the screw screw from loosening. Old sewing needle fragment in the plantar soft tissues great toe Old medial and lateral malleolar screws from old healed ankle fracture. No acute fracture. No aggressive bony resorption worrisome for active osteomyelitis. There are plantar ulcers without underlying soft tissue gas or aggressive bony resorption IMPRESSION: Charcot foot with failure of fusion hardware and collapse of the plantar arch. TECHNICAL DOCUMENTATION: JOB ID: [id number] [employer]- All Rights Reserved Reading location - IP/workstation name: [email or web address]
[2018-05-23 11:00] LABS: ABSOLUTE BASOPHILS # (AUTO) 0.1 10^3/uL (0.0-0.2); ABSOLUTE EOSINOPHILS # (AUTO) 0.3 10^3/uL (0.0-0.6); ABSOLUTE LYMPHOCYTES (AUTO) 1.3 10^3/uL (0.5-4.7); ABSOLUTE MONOCYTES (AUTO) 0.6 10^3/uL (0.1-1.4); ABSOLUTE NEUT (AUTO) 5.7 10^3/uL (1.7-8.2); EOSINOPHILS % (AUTO) 3.5 % (0-6); HEMATOCRIT 37.3 % (36.0-47.0); HEMOGLOBIN 12.7 g/dL (12.0-15.5); LYMPHOCYTES % (AUTO) 16.8 % (13-45); MEAN CORPUSCULAR VOLUME 88 fl (80-97); MONOCYTES % (AUTO) 7.7 % (3-13); PLATELET COUNT 369 10^3/uL (150-450); RED BLOOD COUNT 4.23 10^6/uL (3.72-5.28); RED CELL DISTRIBUTION WIDTH 14.7 % (11.5-14.0); TOTAL CELLS COUNTED % (AUTO) 100 %
[2018-05-23 11:22] LABS: ALANINE AMINOTRANSFERASE 19 U/L (9-52); ALBUMIN 4.3 g/dL (3.5-5.0); ALKALINE PHOSPHATASE 102 U/L (38-126); ANION GAP 10 (5-19); ASPARTATE AMINO TRANSFERASE 22 U/L (14-36); BILIRUBIN,DIRECT 0.3 mg/dL (0.0-0.4); BILIRUBIN,TOTAL 0.8 mg/dL (0.2-1.3); BLOOD UREA NITROGEN 29 mg/dL (7-20); C-REACTIVE PROTEIN 9.6 mg/L (<10.0); CARBON DIOXIDE 29 mmol/L (22-30); CHLORIDE 101 mmol/L (98-107); GLUCOSE 201 mg/dL (75-110); POTASSIUM 4.7 mmol/L (3.6-5.0); SODIUM 140.2 mmol/L (137-145); TOTAL PROTEIN 7.3 g/dL (6.3-8.2)
[2018-05-23 11:36] LABS: ERYTHROCYTE SEDIMENTATION RATE 37 mm/hr (0-30)
== END ==
LOC: WC 09:39
PROVIDERS: ATTEND Preventive Medicine Undersea and Hyperbaric Medicine
DX: E11.621 Type 2 diabetes mellitus with foot ulcer (principal); L97.512 Non-pressure chronic ulcer of other part of right foot with fat layer exposed
CPT/HCPCS: 36415; 80053; 83036; 85025; 85652; 86140

== ENCOUNTER → 2018-12-05 | Outpatient (CLI) | payer MEDICARE ==
--- NOTE | 2018-12-05 15:23 | RADIOLOGY REPORT (SQ) ---
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 TECHNIQUE: AP, lateral and oblique radiographic images acquired of the right foot. LIMITATIONS: None. FINDINGS: MINERALIZATION: Normal. BONES: Pes planus with chronic midfoot degenerative change and bony degenerative change. There is a 1st digit cancellous screw within fracture at the level of the tarsal bones, unchanged. Unchanged ad ditional cancellous screws involving the distal fibula, distal tibia and 4th digit. Multiple additio nal degenerative changes at the interphalangeal joints. No definite acute bony abnormality. No defi nitive findings of osteomyelitis. JOINTS: Pes planus and extensive degenerative changes about the midfoot. No dislocation pre SOFT TISSUES: Soft tissue swelling about the midfoot. OTHER: No other significant finding. IMPRESSION: 1. Stable appearance of the Charcot foot and fusion hardware. No evidence of new bony abnormality or definitive findings of osteomyelitis. TECHNICAL DOCUMENTATION: JOB ID: [id number] [employer] All Rights Reserved Reading location - IP/workstation name: [email or web address]
[2018-12-05 15:31] LABS: ABSOLUTE BASOPHILS # (AUTO) 0.1 10^3/uL (0.0-0.2); ABSOLUTE EOSINOPHILS # (AUTO) 0.3 10^3/uL (0.0-0.6); ABSOLUTE LYMPHOCYTES (AUTO) 1.8 10^3/uL (0.5-4.7); ABSOLUTE MONOCYTES (AUTO) 0.8 10^3/uL (0.1-1.4); ABSOLUTE NEUT (AUTO) 6.1 10^3/uL (1.7-8.2); BASOPHILS % (AUTO) 0.7 % (0-2); HEMATOCRIT 35.8 % (36.0-47.0); HEMOGLOBIN 12.2 g/dL (12.0-15.5); LYMPHOCYTES % (AUTO) 19.4 % (13-45); MEAN CORPUSCULAR HEMOGLOBIN 30.3 pg (27.0-33.4); MEAN CORPUSCULAR HGB CONC 34.2 g/dL (32.0-36.0); MEAN CORPUSCULAR VOLUME 89 fl (80-97); MONOCYTES % (AUTO) 9.2 % (3-13); PLATELET COUNT 283 10^3/uL (150-450); RED BLOOD COUNT 4.04 10^6/uL (3.72-5.28); RED CELL DISTRIBUTION WIDTH 14.4 % (11.5-14.0); SEGMENTED NEUTROPHILS % (AUTO) 67.7 % (42-78); TOTAL CELLS COUNTED % (AUTO) 100 %; WHITE BLOOD COUNT 9.1 10^3/uL (4.0-10.5)
[2018-12-05 15:45] LABS: ALBUMIN 4.2 g/dL (3.5-5.0); ALKALINE PHOSPHATASE 103 U/L (38-126); ANION GAP 11 (5-19); ASPARTATE AMINO TRANSFERASE 21 U/L (14-36); BILIRUBIN,DIRECT 0.3 mg/dL (0.0-0.4); BILIRUBIN,TOTAL 1.7 mg/dL (0.2-1.3); BLOOD UREA NITROGEN 30 mg/dL (7-20); C-REACTIVE PROTEIN 11.5 mg/L (<10.0); CALCIUM 9.9 mg/dL (8.4-10.2); CARBON DIOXIDE 28 mmol/L (22-30); CHLORIDE 98 mmol/L (98-107); GLUCOSE 115 mg/dL (75-110); POTASSIUM 4.3 mmol/L (3.6-5.0); TOTAL PROTEIN 7.1 g/dL (6.3-8.2)
[2018-12-05 16:13] LABS: ERYTHROCYTE SEDIMENTATION RATE 29 mm/hr (0-30)
== END ==
LOC: WC 14:37
PROVIDERS: ATTEND Preventive Medicine Undersea and Hyperbaric Medicine
DX: E11.621 Type 2 diabetes mellitus with foot ulcer (principal); L97.512 Non-pressure chronic ulcer of other part of right foot with fat layer exposed
CPT/HCPCS: 36415; 80053; 83036; 85025; 85652; 86140

== ENCOUNTER → 2019-01-05 | Outpatient (CLI) | payer MEDICARE ==
[2019-01-05 12:39] LABS: ABSOLUTE BASOPHILS # (AUTO) 0.1 10^3/uL (0.0-0.2); ABSOLUTE EOSINOPHILS # (AUTO) 0.3 10^3/uL (0.0-0.6); ABSOLUTE LYMPHOCYTES (AUTO) 2.2 10^3/uL (0.5-4.7); ABSOLUTE MONOCYTES (AUTO) 0.7 10^3/uL (0.1-1.4); ABSOLUTE NEUT (AUTO) 5.1 10^3/uL (1.7-8.2); BASOPHILS % (AUTO) 1.5 % (0-2); HEMATOCRIT 35.8 % (36.0-47.0); HEMOGLOBIN 12.1 g/dL (12.0-15.5); LYMPHOCYTES % (AUTO) 25.8 % (13-45); MEAN CORPUSCULAR HEMOGLOBIN 30.4 pg (27.0-33.4); MEAN CORPUSCULAR HGB CONC 33.9 g/dL (32.0-36.0); MEAN CORPUSCULAR VOLUME 90 fl (80-97); MONOCYTES % (AUTO) 8.5 % (3-13); PLATELET COUNT 309 10^3/uL (150-450); RED BLOOD COUNT 3.99 10^6/uL (3.72-5.28); RED CELL DISTRIBUTION WIDTH 13.6 % (11.5-14.0); SEGMENTED NEUTROPHILS % (AUTO) 60.2 % (42-78); TOTAL CELLS COUNTED % (AUTO) 100 %; WHITE BLOOD COUNT 8.4 10^3/uL (4.0-10.5)
[2019-01-05 13:01] LABS: ALBUMIN 4.1 g/dL (3.5-5.0); ALKALINE PHOSPHATASE 78 U/L (38-126); ANION GAP 8 (5-19); ASPARTATE AMINO TRANSFERASE 24 U/L (14-36); BILIRUBIN,DIRECT 0.1 mg/dL (0.0-0.4); BILIRUBIN,TOTAL 0.6 mg/dL (0.2-1.3); BLOOD UREA NITROGEN 27 mg/dL (7-20); CALCIUM 9.8 mg/dL (8.4-10.2); CARBON DIOXIDE 29 mmol/L (22-30); CHLORIDE 102 mmol/L (98-107); GLUCOSE 130 mg/dL (75-110); POTASSIUM 4.3 mmol/L (3.6-5.0); TOTAL PROTEIN 7.1 g/dL (6.3-8.2)
[2019-01-05 13:03] LABS: C-REACTIVE PROTEIN < 5.0 mg/L (<10.0)
[2019-01-05 13:22] LABS: ERYTHROCYTE SEDIMENTATION RATE 22 mm/hr (0-30)
--- NOTE | 2019-01-05 14:23 | RADIOLOGY REPORT (SQ) ---
EXAM DESCRIPTION: FOOT RIGHT COMPLETE COMPLETED DATE/TIME: 01/05/2019 12:26 pm REASON FOR STUDY: NON-PRS CHRONIC ULCER OTH PRT RIGHT FOOT W FAT LAYER EXPOSED COMPARISON: 12/07/2018. FINDINGS: Four views of the right foot. Relatively stable appearance. Long screw transfixes the great toe from base of the proximal phalanx extending into the talus. The screw is chronically broken at the level of the talus. There is also lucency along its proximal aspe ct with slight chronic bone resorption here. 2nd similar screw transfixes the 4th metatarsal extending across the tarsals. This screw looks relat ively intact. Minimal lucency along its proximal extent, as before. Sclerosis, fragmentation and irregularity throughout the midfoot with loss of the arch of the foot, a s before. TECHNICAL DOCUMENTATION: JOB ID: [id number] Reading location - IP/workstation name: [email or web address]
== END ==
LOC: WC 11:56
PROVIDERS: ATTEND Preventive Medicine Undersea and Hyperbaric Medicine
DX: E11.621 Type 2 diabetes mellitus with foot ulcer (principal); L97.512 Non-pressure chronic ulcer of other part of right foot with fat layer exposed
CPT/HCPCS: 36415; 80053; 83036; 85025; 85652; 86140

== ENCOUNTER → 2019-01-26 | Outpatient (CLI) | payer MEDICARE ==
--- NOTE | 2019-01-26 16:05 | WOMENS IMAGING REPORT ---
EXAM DESCRIPTION: 3D SCREENING MAMMO BILAT COMPLETED DATE/TIME: 01/26/2019 2:40 pm REASON FOR STUDY: Z12.31 SCREENING MAMMO Z12.31 ENCNTR SCREEN MAMMOGRAM FOR MALIGNANT NEOPLASM OF B RE COMPARISON: 06/16/2017. EXAM PARAMETERS: Views: Standard craniocaudal and mediolateral oblique views of each breast recorded using digital acquisition and breast tomosynthesis. Read with the assistance of CAD. .[facility] - [employer] Version 9.2 LIMITATIONS: None. FINDINGS: No suspicious masses, suspicious calcifications or architectural distortion. No areas of c oncern. IMPRESSION: NEGATIVE MAMMOGRAM. BIRADS 1. BREAST DENSITY: b. There are scattered areas of fibroglandular density. BIRAD: ASSESSMENT: 1 NEGATIVE RECOMMENDATION: ROUTINE SCREENING COMMENT: The patient has been notified of the results by letter per MQSA requirements. Additional no tification policies are in place for contacting patient with suspicious or incomplete findings. Quality ID #225: The [employer] recommends an annual screening mammogram for women aged 40 years or over. This facility utilizes a reminder system to ensure that all patients receive reminder letters, and/or direct phone calls for appointments. This includes reminders for routine scr eening mammograms, diagnostic mammograms, or other Breast Imaging Interventions when appropriate. Th is patient will be placed in the appropriate reminder system. TECHNICAL DOCUMENTATION: FINDING NUMBER: (1) ASSESSMENT: (1) JOB ID: [id number] [employer]- All Rights Reserved Reading location - IP/workstation name: [email or web address]
== END ==
LOC: WI 14:10
PROVIDERS: ATTEND Nurse Practitioner
DX: Z12.31 Encounter for screening mammogram for malignant neoplasm of breast (principal)
CPT/HCPCS: 77063; 77067

== ENCOUNTER → 2019-04-20 | Outpatient (CLI) | payer MEDICARE ==
[2019-04-20 13:18] LABS: ABSOLUTE BASOPHILS # (AUTO) 0.1 10^3/uL (0.0-0.2); ABSOLUTE EOSINOPHILS # (AUTO) 0.2 10^3/uL (0.0-0.6); ABSOLUTE LYMPHOCYTES (AUTO) 1.7 10^3/uL (0.5-4.7); ABSOLUTE MONOCYTES (AUTO) 0.6 10^3/uL (0.1-1.4); ABSOLUTE NEUT (AUTO) 5.1 10^3/uL (1.7-8.2); BASOPHILS % (AUTO) 0.8 % (0-2); EOSINOPHILS % (AUTO) 3.1 % (0-6); HEMATOCRIT 36.3 % (36.0-47.0); HEMOGLOBIN 12.3 g/dL (12.0-15.5); LYMPHOCYTES % (AUTO) 21.6 % (13-45); MEAN CORPUSCULAR HEMOGLOBIN 29.9 pg (27.0-33.4); MEAN CORPUSCULAR HGB CONC 33.9 g/dL (32.0-36.0); MEAN CORPUSCULAR VOLUME 88 fl (80-97); MONOCYTES % (AUTO) 8.2 % (3-13); PLATELET COUNT 295 10^3/uL (150-450); RED BLOOD COUNT 4.11 10^6/uL (3.72-5.28); RED CELL DISTRIBUTION WIDTH 13.4 % (11.5-14.0); SEGMENTED NEUTROPHILS % (AUTO) 66.3 % (42-78); TOTAL CELLS COUNTED % (AUTO) 100 %; WHITE BLOOD COUNT 7.7 10^3/uL (4.0-10.5)
--- NOTE | 2019-04-20 13:30 | RADIOLOGY REPORT (SQ) ---
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 TECHNIQUE: AP, lateral and oblique radiographic images acquired of the right foot. LIMITATIONS: None. FINDINGS: MINERALIZATION: Normal. BONES: No acute fracture. No evidence of osteomyelitis. JOINTS: Charcot joints in the hindfoot SOFT TISSUES: No soft tissue swelling. No foreign body. OTHER: 2 long cannulated screws are present in the 1st and 4th metatarsals. The screw in the 1st met atarsal is broken. Screws are present in the medial malleolus and in the distal fibula. IMPRESSION: Surgical changes. No evidence of osteomyelitis. TECHNICAL DOCUMENTATION: JOB ID: [id number] [employer]- All Rights Reserved Reading location - IP/workstation name: [email or web address]
[2019-04-20 13:37] LABS: ALKALINE PHOSPHATASE 66 U/L (38-126); ANION GAP 11 (5-19); ASPARTATE AMINO TRANSFERASE 23 U/L (14-36); BILIRUBIN,DIRECT 0.3 mg/dL (0.0-0.4); BLOOD UREA NITROGEN 28 mg/dL (7-20); CALCIUM 9.8 mg/dL (8.4-10.2); CARBON DIOXIDE 30 mmol/L (22-30); CHLORIDE 98 mmol/L (98-107); GLUCOSE 135 mg/dL (75-110); POTASSIUM 4.3 mmol/L (3.6-5.0); TOTAL PROTEIN 7.1 g/dL (6.3-8.2)
[2019-04-20 13:40] LABS: C-REACTIVE PROTEIN < 5.0 mg/L (<10.0)
[2019-04-20 14:01] LABS: ERYTHROCYTE SEDIMENTATION RATE 21 mm/hr (0-30)
== END ==
LOC: WC 11:49
PROVIDERS: ATTEND Preventive Medicine Undersea and Hyperbaric Medicine
DX: E11.621 Type 2 diabetes mellitus with foot ulcer (principal); L97.512 Non-pressure chronic ulcer of other part of right foot with fat layer exposed
CPT/HCPCS: 36415; 80053; 83036; 85025; 85652; 86140

== ENCOUNTER → 2019-06-29 | Outpatient (CLI) | payer MEDICARE ==
[2019-06-29 12:03] LABS: ABSOLUTE BASOPHILS # (AUTO) 0.1 10^3/uL (0.0-0.2); ABSOLUTE EOSINOPHILS # (AUTO) 0.2 10^3/uL (0.0-0.6); ABSOLUTE LYMPHOCYTES (AUTO) 1.4 10^3/uL (0.5-4.7); ABSOLUTE MONOCYTES (AUTO) 0.8 10^3/uL (0.1-1.4); BASOPHILS % (AUTO) 1.1 % (0-2); EOSINOPHILS % (AUTO) 3.4 % (0-6); HEMATOCRIT 36.3 % (36.0-47.0); HEMOGLOBIN 12.5 g/dL (12.0-15.5); LYMPHOCYTES % (AUTO) 21.1 % (13-45); MEAN CORPUSCULAR HEMOGLOBIN 30.3 pg (27.0-33.4); MEAN CORPUSCULAR HGB CONC 34.5 g/dL (32.0-36.0); MEAN CORPUSCULAR VOLUME 88 fl (80-97); MONOCYTES % (AUTO) 12.3 % (3-13); PLATELET COUNT 339 10^3/uL (150-450); RED BLOOD COUNT 4.14 10^6/uL (3.72-5.28); RED CELL DISTRIBUTION WIDTH 13.5 % (11.5-14.0); SEGMENTED NEUTROPHILS % (AUTO) 62.1 % (42-78); TOTAL CELLS COUNTED % (AUTO) 100 %; WHITE BLOOD COUNT 6.5 10^3/uL (4.0-10.5)
[2019-06-29 12:32] LABS: ALBUMIN 4.1 g/dL (3.5-5.0); ALKALINE PHOSPHATASE 70 U/L (38-126); ANION GAP 10 (5-19); ASPARTATE AMINO TRANSFERASE 24 U/L (14-36); BILIRUBIN,TOTAL 0.5 mg/dL (0.2-1.3); BLOOD UREA NITROGEN 34 mg/dL (7-20); CALCIUM 9.4 mg/dL (8.4-10.2); CARBON DIOXIDE 30 mmol/L (22-30); CHLORIDE 99 mmol/L (98-107); GLUCOSE 76 mg/dL (75-110); POTASSIUM 4.4 mmol/L (3.6-5.0); TOTAL PROTEIN 6.9 g/dL (6.3-8.2)
[2019-06-29 12:35] LABS: C-REACTIVE PROTEIN < 5.0 mg/L (<10.0)
[2019-06-29 12:46] LABS: ERYTHROCYTE SEDIMENTATION RATE 24 mm/hr (0-30)
--- NOTE | 2019-06-29 12:56 | RADIOLOGY REPORT (SQ) ---
EXAM DESCRIPTION: FOOT LEFT COMPLETE COMPLETED DATE/TIME: 06/29/2019 11:57 am REASON FOR STUDY: NON-PRS CHRONIC ULCER OTH PRT LEFT FOOT W FAT LAYER EXPOSED L97.522 NON-PRS CHRON IC ULCER OTH PRT LEFT FOOT W FAT LAYER E11.621 TYPE 2 DIABETES MELLITUS WITH FOOT ULCER COMPARISON: None. NUMBER OF VIEWS: Three views. TECHNIQUE: AP, lateral and oblique radiographic images acquired of the left foot. LIMITATIONS: None. FINDINGS: MINERALIZATION: Normal. BONES: No fracture or dislocation. No evidence of osteomyelitis. JOINTS: No effusions. SOFT TISSUES: No soft tissue swelling. No foreign body. OTHER: No other significant finding. IMPRESSION: There is no evidence of osteomyelitis. TECHNICAL DOCUMENTATION: JOB ID: [id number] 2010 [employer]- All Rights Reserved Reading location - IP/workstation name: [email or web address]
== END ==
LOC: OD 11:31
PROVIDERS: ATTEND Preventive Medicine Undersea and Hyperbaric Medicine
DX: E11.621 Type 2 diabetes mellitus with foot ulcer (principal); L97.522 Non-pressure chronic ulcer of other part of left foot with fat layer exposed
CPT/HCPCS: 36415; 80053; 83036; 85025; 85652; 86140

== ENCOUNTER → 2020-03-13 | Outpatient (CLI) | payer MEDICARE ==
--- NOTE | 2020-03-13 10:32 | WOMENS IMAGING REPORT ---
EXAM DESCRIPTION: 3D SCREENING MAMMO BILAT IMAGES COMPLETED DATE/TIME: 03/13/2020 9:59 am REASON FOR STUDY: Z12.31 ENCNTR SCREEN MAMMOGRAM FOR MALIGNANT NEOPLASM OF BREAST Z12.31 ENCNTR SCR EEN MAMMOGRAM FOR MALIGNANT NEOPLASM OF LORI COMPARISON: Multiple since 2017 EXAM PARAMETERS: Views: Standard craniocaudal and mediolateral oblique views of each breast recorded using digital acquisition and breast tomosynthesis. Read with the assistance of CAD. .[facility] Material Handler Loader Version 9.2 LIMITATIONS: None. FINDINGS: No suspicious masses, suspicious calcifications or architectural distortion. No areas of c oncern. IMPRESSION: NEGATIVE MAMMOGRAM. BIRADS 1. BREAST DENSITY: a. The breasts are almost entirely fatty. BIRAD: ASSESSMENT: 1 NEGATIVE RECOMMENDATION: ROUTINE SCREENING Please continue yearly bilateral screening mammography/tomosynthesis in March 2021 COMMENT: The patient has been notified of the results by letter per [place] requirements. Additional no tification policies are in place for contacting patient with suspicious or incomplete findings. Quality ID #[id number]: The [employer] recommends an annual screening mammogram for women aged 40 years or over. This facility utilizes a reminder system to ensure that all patients receive reminder letters, and/or direct phone calls for appointments. This includes reminders for routine scr eening mammograms, diagnostic mammograms, or other Breast Imaging Interventions when appropriate. Th is patient will be placed in the appropriate reminder system. TECHNICAL DOCUMENTATION: FINDING NUMBER: (1) ASSESSMENT: (1) JOB ID: [id number] 2010 [employer]- All Rights Reserved Reading location - IP/workstation name: [email or web address]
== END ==
LOC: WI 09:19
PROVIDERS: ATTEND Nurse Practitioner
DX: Z12.31 Encounter for screening mammogram for malignant neoplasm of breast (principal)
CPT/HCPCS: 77063; 77067